=== PATIENT | male | born 1925 | race Caucasian/White ===

== ENCOUNTER 2016-07-18 10:25 | Emergency (ER) | payer OTHER, MEDICARE ==
[2016-07-18] MEDS ORDERED: SODIUM CHLORIDE 0.9% 500 ML 500 ML IV ONE (10:48)
[2016-07-18 10:55] LABS: BASOPHILS % (AUTO) 1 % (0-3); EOSINOPHILS % (AUTO) 0 % (0-9); HEMATOCRIT 36 % (39-53); MEAN CORPUSCULAR HGB CONC 34.5 gm/dl (32.0-36.0); MEAN CORPUSCULAR VOLUME 89 fL (80-100); MONOCYTES % (AUTO) 12.4 % (0-12); NEUTROPHILS % (AUTO) 80.3 % (37-80)
[2016-07-18] MEDS ORDERED: ACETAMINOPHEN 325 MG PO ONE (11:07)
[2016-07-18 11:10] LABS: ALBUMIN 3.2 gm/dl (3.4-5.0); CALCIUM 8.5 mg/dl (8.5-10.1); POTASSIUM 4.2 mMol/L (3.5-5.1)
[2016-07-18] MEDS ORDERED: ACETAMINOPHEN 325 MG ONE (11:59)
[2016-07-18 13:01] VITALS: TEMP 100.4
[2016-07-18 13:02] VITALS: BP 141/91; PULSE 102; RESP 23; O2SAT 93
== END 2016-07-18 12:55 | disposition home or self-care (01) | DRG 153 ==
LOC: ED 10:25
DX: J11.1 Influenza due to unidentified influenza virus with other respiratory manifestations (principal)
CPT/HCPCS: 36415; 71020; 80053; 83880; 85025; 96365; 99284

== ENCOUNTER 2016-08-12 07:34 | Day surgery (SDC) | payer OTHER, MEDICARE ==
[~2016-08-12 07:34] MED LIST: LIDOCAINE HCL 1% MPF SOL ONE; PROPOFOL 500 MG/50 ML EMU IV ONE
[2016-08-12 09:26] VITALS: TEMP 97.4
[2016-08-12 09:47] VITALS: PULSE 73; RESP 20
[2016-08-12 09:57] VITALS: BP 152/75; O2SAT 95
== END 2016-08-12 10:08 | disposition home or self-care (01) | DRG 379 ==
LOC: SURG 07:34
PROVIDERS: ATTEND Internal Medicine Gastroenterology
DX: K92.1 Melena (principal); K29.70 Gastritis, unspecified, without bleeding; K31.811 Angiodysplasia of stomach and duodenum with bleeding; K57.10 Diverticulosis of small intestine without perforation or abscess without bleeding
CPT/HCPCS: 82962; 99001; J2001; J2704